=== PATIENT | male | born 1965 | race Caucasian/White ===

== ENCOUNTER → 2017-02-06 | Outpatient (CLI) | payer OTHER ==
--- NOTE | 2017-02-06 23:21 | MR ---
EXAMINATION TYPE: MR knee RT wo con DATE OF EXAM: 02/06/2017 COMPARISON: NONE HISTORY: Pre procedure exam-Right knee pain TECHNIQUE: Multiplanar, multisequence imaging of the rightknee is performed without IV contrast. FINDINGS: Exam was limited due to patient motion. Sagittal images show apparent complete tear of the anterior c ruciate ligament. Posterior cruciate ligament is intact. There is severe narrowing of the medial joint space. There is thinning and increased signal in the an terior and posterior horns of the medial meniscus. There is some degenerative thinning of the lateral meniscus. There is a hypertrophic osteophyte on the anterior aspect of the medial femoral and tibial condyles. There are degenerative cysts in the posterior aspect medial tibial condyle. There is metal artifact from intramedullary rodríguez in the distal femur. Patella tendon is intact. There is spurring on the patella. I see no fracture line. IMPRESSION: Complete tear anterior cruciate ligament. 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 Complex tears of the medial meniscus. Degenerative th inning of the lateral meniscus. Collateral ligaments are not evaluated due to patient motion.
--- NOTE | 2017-02-07 07:22 | XR ---
EXAMINATION TYPE: XR leg prosthetic planning RT DATE OF EXAM: 02/06/2017 COMPARISON: NONE HISTORY: Preplanning for knee replacement TECHNIQUE: 3 views submitted FINDINGS: There is extensive surgery with intramedullary rodríguez involving the femur and severe arthropat hy of the hip joint. There is marked deformity of the midshaft of the femur likely the basis of previ ous fracture with adjacent periosteal reaction or heterotopic ossification. Severe arthropathy of the knee joint noted. IMPRESSION: 1. Severe arthropathy.
== END | disposition home or self-care (01) ==
LOC: RADMRIMAIN 18:03
PROVIDERS: ATTEND Orthopaedic Surgery
DX: Z01.818 Encounter for other preprocedural examination (principal); M17.11 Unilateral primary osteoarthritis, right knee; S83.511A Sprain of anterior cruciate ligament of right knee, initial encounter; S83.241A Other tear of medial meniscus, current injury, right knee, initial encounter